=== PATIENT | male | born 1980 | race Hispanic/Latino ===

== ENCOUNTER 2016-11-04 15:31 | Emergency (ER) | payer SELFPAY ==
[2016-11-04 15:44] VITALS: BP 126/73; PULSE 97; RESP 16; O2SAT 99
[2016-11-04 16:15] LABS: BASOPHILS % (AUTO) 0.2 % (0-3); EOSINOPHILS % (AUTO) 0 % (0-5); MONOCYTES % (AUTO) 9.3 % (4-12); Mean Corpuscular Hemoglobin 30.8 pg (27.0-35.0); Mean Corpuscular Volume 90.7 fL (81-100); NEUTROPHILS % (AUTO) 77.8 % (40-74); Platelet Count 176 bil/L (150-400)
[2016-11-04 16:40] LABS: TROPONIN T < 0.010 ug/L (0.0-0.011)
--- NOTE | 2016-11-04 16:55 | DRSVH ---
PROCEDURE: X-RAY CHEST ONE VIEW, PORTABLE ([id number]) INDICATIONS: Syncope. TECHNIQUE: One view of the chest was acquired. COMPARISON: [facility], , CHEST 1VW (PORTABLE), 06/17/2014, 19:03. FINDINGS: Surgical changes and devices: None. Lungs and pleura: There is new right hilar airspace disease. No lobar consolidation, large effusion, or pneumothorax is evident. Please note that the right costophrenic angle is not included on the st udy. Mediastinum: Mediastinal contours appear normal. Heart size is normal. Bones and chest wall: No suspicious bony lesions. Overlying soft tissues appear unremarkable. IMPRESSION: Right hilar airspace disease may represent pneumonia, atelectasis, and/or aspiration. Pl ease correlate clinically. Dictated by: Kimani Chaney M.D. on 11/04/2016 at 15:53 Approved by: Kimani Chaney M.D. on 11/04/2016 at 15:54
[2016-11-04 17:36] LABS: APPEARANCE,URINE CLEAR (CLEAR,HAZY); COLOR,URINE DARK YELLOW (YELLOW); OCCULT BLOOD,URINE MODERATE (NEGATIVE)
--- NOTE | 2016-11-04 18:30 | ED.REPORT ---
HPI-Headache Date of Service Nov 04, 2016 ED Provider: Surya Bradford History of Present Illness: 36yo male with 1 week of intermittent fever and headache was at ambulatory clinic earlier today and had a syncopal episode during blood draw. Family is in the room and provides additional history. 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 No allergies or recent travel. Good PO intake. No known sick contacts. Nursing Notes Stated Complaint: DIZZY,FEVER Chief Complaint: Neuro Symptoms/ Deficits Nursing Notes Reviewed: Yes Allergies: Coded Allergies: No Known Allergies (Unverified Allergy, Unknown, 11/04/16) No Active Prescriptions or Reported Meds General Time Seen by MD: 18:29 Chief Complaint Headache, Other fever Hx Obtained From: Patient, Other family... Arrived By: Walk-in Sudden in Onset?: Yes Onset Occurred: 1 week ago Symptom Duration: Waxes and wanes Location: : Generalized Quality: Aching Severity: Current: Mild Severity: Maximum: Moderate Associated with: Reports: Fever, Syncope Pertinent Negative: Pt denies other symptoms Recent Healthcare: Recent doctor visit Similar Sx Previous: No Risk-Headache )( SAH Risk Stratification RF Statements: Risk factors reviewed )( IC Mass Risk Stratification RF Statements: No risk factors Past Medical History Past Medical History none reported denies h/o blood clots Past Surgical History none reported Family History none reported Smoking History Never Smoker Social History Alcohol Use: "Social" Drug Use: Denies drug use Ambulatory Status Independent Review of Systems Constitutional: Reports: Fever, Denies: Chills, Malaise, Recent wt loss, Weakness - generalized GI: Denies: Abdominal pain Neurologic: Reports: Headache, Syncope, Denies: Confusion, Dizziness, Focal weakness, Seizure, Vision change, Weakness Respiratory: Denies: Shortness of breath Cardiovascular: Denies: Chest pain Physical Exam Physical Exam Notes: temp noted Initial Vital Signs Vital Signs (First) Date Time Temp Pulse Resp B/P Pulse Ox O2 Delivery O2 Flow Rate FiO2 11/04/16 15:44 39.5 97 16 126/73 99 Room Air Initial VS: Reviewed General/Constitutional: Awake, Alert, No acute distress, Not toxic appearing Head / Eyes: Atraumatic, Normocephalic, EOMI Neck: Supple, No meningismus, Full range of motion, No adenopathy, Non-tender Neurologic: Speech NL, No motor deficits, No sensory deficits, Reflexes equal bilat, Cerebellar NL, Gait NL ENT: Airway patent, Pharynx NL, Tympanic membs NL Respiratory / Chest: Breath sounds NL, Breath sounds = bilat, No respiratory distress Cardiovascular: Regular rhythm, Heart sounds NL Abdomen: Soft, Non-tender Interpretation & Diagnostics Interpretation & Diagnostics: Labs reviewed with Dr. Jones Lab Results Interpretation Result Diagram: 11/04/16 1612 11/04/16 1612 Test 11/04/16 16:12 11/04/16 16:15 11/04/16 17:04 White Blood Count 9.5th/mm3 (3.8-10.1) Red Blood Count 3.67mil/mm3 (4.40-5.80) Hemoglobin 11.3g/dL (13.8-17.2) Hematocrit 33.3% (41.0-50.0) Mean Corpuscular Volume 90.7fL (81-100) Mean Corpuscular Hemoglobin 30.8pg (27.0-35.0) Mean Corpuscular Hemoglobin Concent 33.9% (32.0-37.0) Red Cell Distribution Width 12.0% (12.3-15.4) Platelet Count 176bil/L (150-400) Neutrophils (%) (Auto) 77.8% (40-74) Lymphocytes (%) (Auto) 12.3% (14-46) Monocytes (%) (Auto) 9.3% (4-12) Eosinophils (%) (Auto) 0% (0-5) Basophils (%) (Auto) 0.2% (0-3) Sodium Level 130mEq/L (134-144) Potassium Level 4.0mEq/L (3.5-5.2) Chloride Level 93mEq/L (97-108) Carbon Dioxide Level 22mmol/L (18-29) Blood Urea Nitrogen 9mg/dL (6-20) Creatinine 0.87mg/dL (0.76-1.27) Estimat Glomerular Filtration Rate 104mL/min (>59) Glucose Level 137mg/dL (60-99) Calcium Level 8.7mg/dL (8.5-10.1) Total Bilirubin 1.1mg/dL (0.0-1.2) Aspartate Amino Transf (AST/SGOT) 50U/L (0-50) Alanine Aminotransferase (ALT/SGPT) 51U/L (0-44) Alkaline Phosphatase 70U/L (25-150) Troponin T < 0.010ug/L (0.0-0.011) Pro-B-Type Natriuretic Peptide 232.6pg/mL (0-86) Total Protein 7.2g/dL (6.4-8.4) Albumin 3.9g/dL (3.4-5.0) Hold Purple Top Tube Received (Received) Hold Blue Top Tube Received (Received) Hold Red Top Tube Received (Received) Hold [place] Top Tube Received (Received) Hold [place] Top Tube Received (Received) Urine Color Dark yellow (YELLOW) Urine Appearance Clear (CLEAR,HAZY) Urine pH 7.0 (5.0-8.0) Urine Specific [place] 1.010 (1.003-1.035) Urine Protein 100mg/dL (NEG,TRACE) Urine Glucose (UA) Negativemg/dL (NEGATIVE) Urine Ketones Negativemg/dL (NEGATIVE) Urine Occult Blood Moderate (NEGATIVE) Urine Nitrite Negative (NEGATIVE) Urine Bilirubin Negative (NEGATIVE) Urine Urobilinogen 2.0mg/dL (NORMAL) Urine Leukocyte Esterase Negative (NEGATIVE) Urine RBC 3-10/hpf (0-2) Urine WBC 0-5/hpf (0-5) Urine Epithelial Cells Occasional/hpf (NONE-MOD) Urine Crystals None seen (NONE SEEN) Urine Bacteria Few/hpf (NONE-FEW) Urine Hyaline Casts None/lpf (NONE) Urine Granular Casts None seen (NONE SEEN) Urine Waxy Casts None seen (NONE SEEN) Urine Red Blood Cell Casts None seen (NONE SEEN) Urine White Blood Cell Casts None seen (NONE SEEN) Urine Mucus None seen (None Seen) Urine Trichomonas None seen (NONE SEEN) Urine Yeast None (NONE SEEN) Urinalysis Comment None Urine Culture Reflexed Not indicated ECG Interpretation Interpreted by: ED physician Normal ECG Interpretation: Normal ECG w/ rate of... (87) Re-Eval/Medical Decision Med Decision/Clinical Course Pt. examined by Dr. Jones who concurs there is no compelling clinical indication to obtain head CT or spinal tap at present. Pt. likely has a viral febrile illness. I encouraged close follow up and to return to this ER if anything worsens. Pt. and family acknowledged understanding of treatment plan. Counseled Regarding: Diagnosis, Lab results, Need for follow-up, When/why to return to ED Discharge & Departure Impression: Primary Impression: Febrile illness Additional Impression: Vasovagal syncope Disposition: Home Patient Instructions: Fever in Adults (ED) Additional Instructions: Rest, push fluids, control fever with Tylenol or Motrin. Follow up in 2-3 days for recheck. Return to ER if anything worsens. Referrals: [facility] Resident Clinic EDSupervising Provider for APC: Adilson Jones MD Attending Statement I personally interviewed and examined this patient. No photophobia, stiff neck or vomiting. No recent travel. Looks well, fever does not appear to be related to meningitis or other serious illness. Syncope related to blood draw, note he has done this before. Surya Bradford Nov 04, 2016 18:30 Adilson Jones MD Nov 05, 2016 01:39
[2016-11-04] MEDS ORDERED: 0.9% Sodium Chloride 1,000 ML IV ONE ×2 (19:10→19:55)
[2016-11-04 19:21] VITALS: BP 97/57; PULSE 77; RESP 18; O2SAT 98
[2016-11-04 20:25] VITALS: BP 97/57; PULSE 77; RESP 18; O2SAT 98
== END 2016-11-04 20:26 | disposition home or self-care (01) ==
LOC: SED 15:31 → EDSEX 15:31 → EDBD 15:31 → SED 20:26
DX: R55 Syncope and collapse (principal); R50.9 Fever, unspecified; R51 Headache
CPT/HCPCS: 36415; 71010; 80053; 81000; 83880; 84484; 85025; 93005; 96360; 99285; J7030